=== PATIENT | female | born 1970 | race Asian ===

== ENCOUNTER 2018-12-31 07:54 | Day surgery (SDC) | payer OTHER ==
[2018-12-28 17:52] VITALS: Ht 160 cm; Wt 55.5 kg
[2018-12-31] VITALS (18 sets, daily range): BP systolic 94–152; BP diastolic 60–90; PULSE 54–72; RESP 13–29
[~2018-12-31] VITALS: Ht 160 cm; Wt 55.5 kg
[2018-12-31] MEDS ORDERED: SOD CHLORIDE 0.9% 1,000 ML IV ONE (08:30)
[2018-12-31] MEDS ORDERED: CEFAZOLIN 2 GM/50 ML (PMX) 50 ML IVPB ONE (08:30)
--- NOTE | 2018-12-31 10:27 | PREAC ---
Date/Time of Note Date/Time of Note DATE: 12/31/18 TIME: 10:25 Anesthesia Eval and Record Evaluation Time Pre-Procedure Interview DATE: 12/31/18 TIME: 10:25 Age 48 Sex female NPO: 8 hrs Preoperative diagnosis left scalp mass Planned procedure excision left scalp mass Past Medical History Past Medical History: None Surgery & Anesthesia Issues No known issue Meds Anticoagulation: No Beta Lorena within 24 hr: No Reason Beta Lorena not given: Pt. not on B-Lorena No Active Prescriptions or Reported Meds Current Medications Sodium Chloride 1,000 ml @ 75 mls/hr [id number] ONCE IV ; Start 12/31/18 at 08:30; Stop 12/31/18 at 21:49 Meds reviewed: Yes Allergies Coded Allergies: No Known Allergy (Unverified , 12/31/18) Allergies Reviewed: Yes Labs/Studies Labs Reviewed: Reviewed by anesthesiologist Result Diagram: 12/31/18 0837 12/31/18 0837 Laboratory Tests 12/31/18 08:37 test: Negative Pre-procedure Exam Last vitals Vital Signs Date Temp Pulse Resp B/P (MAP) Pulse Ox O2 O2 Flow FiO2 Time Delivery Rate 12/31/18 97.6 72 18 152/90 100 Room Air 08:55 (110) Airway: Adequate mouth opening, Adequate thyromental dist Mallampati: Mallampati I Teeth: Normal Lung: Normal Heart: Normal ASA Physical Status ASA physical status: 1 Emergency: None Planned Anesthetic General/MAC: LMA Planned Pain Management Parenteral pain med Pre-operative Attestations Prior to commencing anesthesia and surgery, the patient was re-evaluated, there was verification of: *The patient's identity *The results of appropriate recent lab work and preoperative vital signs *The above evaluation not changing prior to induction *Anesthetic plan, risk benefits, alternative and complications discussed with patient/family; questions answered; patient/family understands, accepts and wishes to proceed. LILLI MARIN Dec 31, 2018 10:27
[2018-12-31] MEDS ORDERED: PROPOFOL 100 ML ONE (10:35)
[2018-12-31] MEDS ORDERED: FENTAnyl 50 MCG/ML VIAL ONE (10:37)
[2018-12-31] MEDS ORDERED: LIDOCAINE 2% (SDV) 5 ML INJ ONE (10:37)
[2018-12-31] MEDS ORDERED: DEXAMETHASONE 4 MG/ML 5 ML INJ ONE (10:53)
[2018-12-31] MEDS ORDERED: ONDANSETRON 4 MG INJ ONE (10:54)
[2018-12-31] MEDS ORDERED: BUPIVACAINE 0.25% (MPF) 30 ML INJ ONE (11:05)
[2018-12-31] MEDS ORDERED: NEOMYC/POLYMYX/BACIT 30 GM OINT ONE (11:10)
[2018-12-31] MEDS ORDERED: CEFAZOLIN 1 GM INJ ONE (11:28)
[2018-12-31] MEDS ORDERED: HYDROCODONE/APAP (5/325) TAB PO ONE (11:30)
--- NOTE | 2018-12-31 11:31 | OPR ---
Date/Time of Note Date/Time of Note DATE: 12/31/18 TIME: 11:29 Operative Report Procedure Date: Dec 31, 2018 Preoperative Diagnosis left scalp mass Postoperative Diagnosis same Operation/Procedure Performed 1. excision of left scalp mass 3 cm mass 5 cm incision 2. localized adjacent tissue transfer with the use of skin flaps 10 sq cm defect of left scalp 3. therapeutic injection of subcutaneous local anesthesia Surgeon see signature line Junior Mechanical Engineer none Anesthesia Type: general Estimated Blood Loss: 0 - 10 ml's Transfusion none Specimen left scalp mass Grafts/Implants none Complications none Pt Condition Post Procedure: stable Indications This is a 48-year-old female with a left scalp mass. She has pain and request surgical excision. Risks alternatives benefits and percent were discussed the patient. Potential complications including but not limited to bleeding infection recurrence of mass in particular scar alopecia was discussed the patient. Patient expressed understanding and consents to the operation. Procedure Description Patient is taken to the OR and prepped and draped in usual sterile fashion. Surgical time was performed. IV antibiotics given. Transverse incision was made with a 15 blade. Dissection with cautery carried onto the mass and the mass was circumferentially excised with cautery all the way off of the surrounding structures. Good hemostasis established. Due to the tissue defect localized adjacent to his transfer with these of skin flaps was performed. Multilayer closure with interrupted 3-0 Vicryl running 4-0 Monocryl. Therapeutic taste local anesthesia was injected. Antibiotic ointment and dry dressings were applied. Neptali HI Dec 31, 2018 11:31
[2018-12-31] MEDS ORDERED: MIDAZOLAM 1 MG/ML 2 ML INJ ONE (11:36)
--- NOTE | 2018-12-31 11:36 | PAC ---
Date/Time of Note Date/Time of Note DATE: 12/31/18 TIME: 11:35 Post-Anesthesia Notes Post-Anesthesia Note Last documented vital signs Vital Signs Date Temp Pulse Resp B/P (MAP) Pulse Ox O2 O2 Flow FiO2 Time Delivery Rate 12/31/18 97.6 72 18 152/90 100 Room Air 1135 (110) Activity: WNL Respiratory function: WNL Cardiovascular function: WNL Mental status: Baseline Pain reasonably controlled: Yes Hydration appropriate: Yes Nausea/Vomiting absent: Yes LILLI MARIN Dec 31, 2018 11:36
[2018-12-31] MEDS ORDERED: LABETALOL HCL 20MG INJ IV PRN (12:00)
[2018-12-31] MEDS ORDERED: ALBUTEROL 0.083% (NEB) 2.5 MG/3 ML AMP HHN PRN (12:00)
[2018-12-31] MEDS ORDERED: EPHEDrine SULFATE 50 MG/5 ML SYG IV PRN (12:00)
[2018-12-31] MEDS ORDERED: MEPERIDINE 25 MG INJ IV PRN (12:00)
[2018-12-31] MEDS ORDERED: hydrALAzine 20 MG INJ IV PRN (12:00)
[2018-12-31] MEDS ORDERED: MIDAZOLAM 1 MG/ML 2 ML INJ IV PRN (12:00)
[2018-12-31] MEDS ORDERED: ONDANSETRON 4 MG INJ IV PRN (12:00)
[2018-12-31] MEDS ORDERED: OXYCODONE/ACETAMINOPHEN (5/325) TAB PO PRN ×2 (12:00)
[2018-12-31] MEDS ORDERED: DIPHENHYDRAMINE 50 MG INJ IV PRN (12:00)
[2018-12-31] MEDS ORDERED: FENTAnyl 50 MCG/ML VIAL IV PRN ×3 (12:00)
== END 2018-12-31 14:00 | disposition home or self-care (01) ==
LOC: SDS 07:54
PROVIDERS: ATTEND Surgery
DX: D17.0 Benign lipomatous neoplasm of skin and subcutaneous tissue of head, face and neck (principal)
CPT/HCPCS: 14020; 71045; 80053; 84703; 85025; 85610; 85730; 88307; 93005; J0690; J1100; J2250; J2405; J3010; Z7512; Z7610